=== PATIENT | female | born 1930 | race Caucasian/White ===

== ENCOUNTER 2021-02-14 10:27 | Inpatient (IN) ==
[2021-02-14] MEDS ORDERED: 0.9 % SODIUM CHLORIDE 1,000 ML IV ONE (11:05)
--- NOTE | 2021-02-14 11:11 | Emergency Department Note ---
HPI General Chief complaint: Fall Stated complaint: fall Time Seen by Provider: 02/14/21 10:49 Source: EMS Mode of arrival: EMS Limitations: physical limitation History of Present Illness HPI Narrative: Patient is an 89-year-old lady who arrives emergency department accompanied by her daughter complaining of a fall. History is provided by the patient and her daughter and is somewhat limited due to the patient's difficulty remembering events leading up to her emergency department presentation. The patient's da bao says she noticed a bruise on her mother's head yesterday. When she asked her mother about what it occurred she could not remember. This morning, the patient's daughter arrived to her home to find her sitting on the ground somewhat confused. She notes that the house was in some disarray and it appeared as if she may have fallen in the bathroom. The patient was complaining of pain in her left hip and her daughter noticed difficulty using her left arm. Patient cannot remember what happened. Her daughter was concerned that she was unable to stand under her own power as she is normally a quite active individual so she brought her to the emergency department for further evaluation. The patient currently has no physical complaints. Related Data Home Medications Medication Instructions Recorded Confirmed calcium carbonate 500 mg calcium 1,250 mg PO QDAY tab 10/15/14 02/14/21 (1,250 mg) tablet (Calcium 500) cholecalciferol (vitamin D3) 10 400 unit PO QDAY cap 10/15/14 02/14/21 mcg (400 unit) capsule vit C-vit V-nozpup-vmwy ox-lutein 2 cap PO .daily cap 04/25/17 02/14/21 226 mg-200 unit-5 mg-0.8 mg capsule (PreserVision Lutein) Previous Rx's Medication Instructions Recorded valsartan 160 mg tablet 80 mg PO BID #90 tab 12/02/19 calcitonin (salmon) 200 See Rx Instructions INTRANASAL 02/11/20 unit/actuation nasal spray QDAY #3.7 ml furosemide 40 mg tablet See Rx Instructions .ROUTE 12/10/20 .COMPLEX #90 tab amitriptyline 10 mg tablet See Rx Instructions .ROUTE 02/04/21 .COMPLEX #270 tab Allergies Allergy/AdvReac Type Severity Reaction Status Date / Time enalaprilat [From Lexxel] Allergy Mild Rash Verified 02/14/21 14:47 felodipine [From Lexxel] Allergy Mild Rash Verified 02/14/21 14:47 hydrocodone Allergy Mild Rash Verified 02/14/21 14:48 atenolol Allergy Unknown Unknown Verified 02/14/21 10:48 risedronate sodium AdvReac Intermediate Joint Pain Verified 02/14/21 14:47 [From Actonel] cefdinir [From Omnicef] AdvReac Mild Diarrhea Verified 02/14/21 14:47 indapamide [From Lozol] AdvReac Mild Intolerance/Dry Verified 02/14/21 14:47 Eyes - Probable Sjogren's meloxicam [From Mobic] AdvReac Mild GI Verified 02/14/21 14:47 intolerance nitrofurantoin AdvReac Mild itchy, no Verified 02/14/21 14:47 [From Macrobid] rash or hives noticed NSAIDS (Non-Steroidal AdvReac Mild Gastrointestinal Verified 02/14/21 14:47 Anti-Inflamma Upset sulfamethoxazole AdvReac Mild mouth Verified 02/14/21 14:48 [From Septra] burning telmisartan [From Micardis] AdvReac Mild Headache Verified 02/14/21 14:47 trimethoprim [From Septra] AdvReac Mild mouth Verified 02/14/21 14:48 burning Review of Systems ROS ROS Narrative: Narrative: All systems ED: reviewed and negative except as stated. 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) Foot pain, right (Chronic) Right shoulder pain (Chronic) Rotator cuff injury (Chronic) Rib pain on left side (Chronic) Rib fractures (Chronic) Irregular heart rhythm (Chronic) Cough (Chronic) Finger pain, right (Chronic) History of Mohs surgery for squamous cell carcinoma of skin (Chronic ~01/15/20) Visit for suture removal (Chronic) Basal cell carcinoma (Chronic) Atypical mole (Chronic) Medicare annual wellness visit, subsequent (Chronic) Urinary tract infection (Chronic) Bladder infection (Chronic) UTI (urinary tract infection) (Chronic) Distal radius fracture, right (Chronic) Fracture of ulnar styloid (Chronic) Vascular insufficiency of extremity (Chronic) Sinusitis (Chronic) Encounter for Health Maintenance Examination in Adult (Chronic) Status post wrist surgery (Chronic) History of shoulder surgery (Chronic) History of knee surgery (Chronic) History of hysterectomy (Chronic) History of colonoscopy (Chronic) Asymptomatic varicose veins of bilateral lower extremities (Chronic) Hx of urinary tract infection (Chronic) Shoulder fracture (Chronic) Raynaud's syndrome (Chronic) Radiculopathy, lumbosacral or thoracic (Chronic) Closed fracture of radius (Chronic) Premature atrial contractions (Chronic) Osteoporosis (Chronic) Menopausal syndrome (Chronic) Low back pain (Chronic) Irritable bowel syndrome (Chronic) Hypertension, essential (Chronic) Hyperlipemia (Chronic) Hematuria, microscopic (Chronic) Headache (Chronic) Gilbert's syndrome (Chronic) Fall (Chronic) Edema (Chronic) Dyspepsia (Chronic) Diverticulosis of colon (Chronic) Disc herniation (Chronic) Depressive disorder (Chronic) Degenerative joint disease (Chronic) Cystocele (Chronic) Constipation (Chronic) History of colonic polyps (Chronic) Cervical carcinoma (Chronic) Arthralgia (Chronic) Medical History Arthralgia (06/03/2014-Yourzek) Asymptomatic varicose veins of bilateral lower extremities Atypical mole Basal cell carcinoma Bladder infection Cervical carcinoma Cervical CA, S/P Hysterectomy. 12/2011--questionable pelvic exam with right adnexal fullness, negative workup with Ultrasound CT 11/2010--Pap OK 12/2011. Closed fracture of radius (06/03/14-Yourzek) Constipation Cough Cystitis Cystocele small cystocele; abdominal CT Nov Degenerative joint disease With last interaction the left knee arthroplasty in August of 2011 Depressive disorder Situational Disc herniation in 1998 and 2003 Distal radius fracture, right Diverticulosis of colon Colonoscopy in May 2007 showing diverticula and adenomatous polyp, due for rescreening through Dr Gatica in spring Dyspepsia Dysuria Edema Encounter for Health Maintenance Examination in Adult Fall non syncopal with left shoulder fracture in 1998 Finger pain, right Foot pain, right Fracture of ulnar styloid Gilbert's syndrome History of Headache Past history of headache with extensive workup in the late . Hematuria, microscopic History of colonic polyps 11/17/98--no change of collaagenous or microscopic colitis; lamina propria edema, mild infiltrate of eosinophils. 05/24/07--cecal polyp. splenic flexure polyp, diverticuli, hemorrhoids - Dr. Gatica. 02/07/13 Colonoscopy--Dr. Gatica--uncomplicated internal hemorrhoids; diverticulosis. No rescreen indicated beyond 82 yrs. of age unless new clinical issue arises. Hx of urinary tract infection History of recurrent UTI's, currently quiescient; small cystocele; abdominal CT Nov Hyperlipemia low dose Zocor-stable Hypertension, essential PAC's on electrocardiogram Irregular heart rhythm Irritable bowel syndrome History of Low back pain Medicare annual wellness visit, subsequent Menopausal syndrome Osteoporosis Resolved to osteopenia by bone density in December of 2011, continues Fortical. Stable vitamin D level October 2009 Premature atrial contractions Pruritus Pruritus of unknown etiology. No rash, or hives present. Pt completed 10 days of Macrobid on 11/29/2016. During her ABO treatment there were NO c/o of pruritus, rash, or hives. Radiculopathy, lumbosacral or thoracic History of left lumbar radiculopathy and herniated disc in 1998 and 2003 Raynaud's syndrome non progressive Rib fractures Rib pain on left side Right shoulder pain Right wrist fracture Rotator cuff injury Shoulder fracture 1998 Left Sinusitis Urinary tract infection UTI (urinary tract infection) Varicose veins of both lower extremities Vascular insufficiency of extremity Raynaud phenomenon on both feet Visit for suture removal Surgical History History of colonoscopy 11/17/98 no change of collagenous or microscopic colitis. 05/24/07--adenomatous polyps x2, diverticulosis, hemorrhoids - Dr. Gatica. 02/07/13 Colonoscopy--Dr. Gatica--uncomplicated internal hemorrhoids; diverticulosis. No rescreen indicated beyond 82 yrs. of age unless new clinical issue arises. History of hysterectomy 1967 cervical cancer. Vaginal pap smear done 01/03/12; questionable pelvic exam with right adnexal fullness, negative workup with ultrasound CT 12/04. Breast exam stable, mammogram DONE 01/09/12 on a background of positive family history and heavy breasted with cystic change History of knee surgery Right total knee replacement (no date); Left total Knee replacement 09/08/11--Dr. Gamino. History of Mohs surgery for squamous cell carcinoma of skin (~01/15/20) Left Wrist - Dr. Jace Rosen, [facility] History of shoulder surgery 2001 RIGHT SHOULDER Status post wrist surgery Bilateral wrist surgery Family History Sister Family history of malignant neoplasm of breast Unknown Essential hypertension Osteoarthritis Social History Smoking Status: Never smoker Alcohol Intake Frequency: does not drink Substance Use: does not use Exam Narrative Narrative: I reviewed the vital signs. Gen -patient is awake and alert and in no acute distress. HEENT -there is a patch of ecchymosis over the left frontal region without palpable underlying bony deformity there is no conjunctival pallor or scleral icterus. Mucous membranes are dry. CV -S1-S2 regular rate and rhythm. Resp -breathing is nonlabored. Lungs are clear to auscultation bilaterally. There is no cyanosis. Derm -skin is warm and dry. MSK -there are superficial abrasions over the right medial malleolus and left lateral malleolus without significant underlying bony tenderness. There is mild tenderness with internal and external rotation of the left hip. There is no palpable underlying bony deformity. The pelvis is stable. There is moderate tenderness to palpation of the distal left radius without any palpable underlying bony deformity. There is ecchymosis and edema of the left shoulder without any tenderness to palpation. Patient is slightly limited range of motion with her left shoulder due to pain. There is no midline vertebral tenderness to palpation. Psych -patient has appropriate affect. Neuro -patient provides somewhat confused answers to questions. She is oriented to person place and situation. She is oriented to the year but thinks the month is September. There is no dysarthria or aphasia. Facial sensation is symmetric. There is no facial muscular asymmetry. Extraocular motion is intact. Tongue protrudes in the midline. Palate elevates symmetrically. Shoulder shrug is symmetric. Muscle strength is 5 out of 5 in all 4 extremities. Peripheral sensation is grossly intact to light touch bilaterally. There is no zsir-rh-qrjz abnormality. There is no ailaxl-uj-vope abnormality. General Limitations: physical limitation Course Vital Signs Vital signs: Vital Signs Pulse Rate 61 02/14/21 10:41 Blood Pressure 143/84 02/14/21 10:41 Pulse Oximetry (%) 97 02/14/21 10:41 Temperature 99.1 F H 02/14/21 10:43 Pulse Rate 129 H 02/14/21 14:31 Respiratory Rate 27 H 02/14/21 14:31 Blood Pressure 117/95 02/14/21 14:31 Pulse Oximetry (%) 97 02/14/21 14:31 MDM MDM Narrative Medical decision making narrative: Patient presents following a fall with generalized weakness. Imaging does not reveal any intracranial hemorrhage or fractures. Labs remarkable for multiple mild electrolyte derangements consistent with dehydration as well as a creatinine that is slightly elevated above her baseline. She does have sign ificant leukocytosis and significant pyuria as well. Her CK is quite elevated. I discussed the test thoughts with the patient and her daughter. I recommended she be admitted to the hospital for IV antibiotics and IV fluids and she was agreeable. I discussed the patient's history examination and diagnostic findings with Dr. Carrizales, who agrees with the plan of care and accepts admission. Critical care time I provided 32 minutes of critical care time. This was in addition to any separately billable procedures. The patient was given IV fluids to treat her rhabdomyolysis and prevent progression to kidney injury. She was given IV antibiotics to treat her UTI and prevent progression to septic shock. the patient was closely monitored for response to treatment and stability of vital signs throughout their emergency department stay. Lab Data Lab results reviewed: Yes I reviewed the patient's lab results. Result diagrams: 02/14/21 11:29 02/14/21 11:29 Labs: Lab Results 02/14/21 02/14/21 02/14/21 Range/Units 11:28 11:29 11:29 WBC 14.6 H (4.5-11.0) K/mcL RBC 4.59 (3.59-5.38) M/mcL Hgb 13.0 (11.2-15.7) g/dL Hct 38.9 (34.1-44.9) % MCV 84.7 (80.0-100.0) fL MCH 28.3 (26.0-34.0) pg MCHC 33.4 (31.0-36.0) g/dL RDW 14.3 (11.5-14.5) % Plt Count 201 (140-440) K/mcL MPV 11.8 H (7.4-10.4) fL Neut % (Auto) 83.8 H (38.0-78.0) % Lymph % (Auto) 3.8 L (15.5-49.0) % [place] % (Auto) 12.2 H (1.0-12.0) % Eos % (Auto) 0 (0.0-7.0) % Baso % (Auto) 0.2 (0.0-2.0) % Lymph # (Auto) 0.56 L (1.50-4.80) K/mcL [place] # (Auto) 1.78 H (0.10-0.90) K/mcL Eos # (Auto) 0 (0.00-0.70) K/mcL Baso # (Auto) 0.03 (0.00-0.30) K/mcL Absolute Neutrophils 12.20 H (1.80-8.00) K/mcL VBG Lactic Acid 1.8 (0.5-2.0) mmol/L Sodium 132 L (133-145) mmol/L Potassium 4.0 (3.3-5.1) mmol/L Chloride 92 L (96-108) mmol/L Carbon Dioxide 21 L (22-30) mmol/L Anion Gap 19.0 H (8.0-16.0) BUN 52 H (8-23) mg/dL Creatinine 1.7 H (0.6-1.1) mg/dL GFR Calculation 26 Glucose 147 H (70-105) mg/dL Calcium 9.3 (8.6-10.4) mg/dL Total Bilirubin 1.3 H (0.1-1.0) mg/dL AST 127 H (<32) U/L ALT 41 H (<40) U/L Alkaline Phosphatase 94 (39-117) U/L Total Creatine Kinase 5050 H (24-170) U/L Total Protein 7.9 (5.9-8.4) gm/dL Albumin 3.9 (3.2-5.2) gm/dL Globulin 4.0 H (2.2-3.7) gm/dL Albumin/Globulin Ratio 1.0 (1.0-2.3) Urine Color Urine Appearance (Clear) Urine pH (5.0-9.0) Ur Specific [place] (1.000-1.035) Urine Protein (Negative) mg/dL Urine Glucose (UA) (Negative) mg/dL Urine Ketones (Negative) mg/dL Urine Occult Blood (Negative) mg/dL Urine Nitrate (Negative) Urine Bilirubin (Negative) mg/dL Urine Urobilinogen mg/dL Ur Leukocyte Esterase (Negative) /uL Urine RBC (0-3) /hpf Urine WBC (0-4) /hpf Ur Squamous Epith Cells (0-4) /hpf Urine Bacteria (0) /hpf Hyaline Casts (0-2) /lph Ur Culture Indicated? 02/14/21 Range/Units 12:36 WBC (4.5-11.0) K/mcL RBC (3.59-5.38) M/mcL Hgb (11.2-15.7) g/dL Hct (34.1-44.9) % MCV (80.0-100.0) fL MCH (26.0-34.0) pg MCHC (31.0-36.0) g/dL RDW (11.5-14.5) % Plt Count (140-440) K/mcL MPV (7.4-10.4) fL Neut % (Auto) (38.0-78.0) % Lymph % (Auto) (15.5-49.0) % [place] % (Auto) (1.0-12.0) % Eos % (Auto) (0.0-7.0) % Baso % (Auto) (0.0-2.0) % Lymph # (Auto) (1.50-4.80) K/mcL [place] # (Auto) (0.10-0.90) K/mcL Eos # (Auto) (0.00-0.70) K/mcL Baso # (Auto) (0.00-0.30) K/mcL Absolute Neutrophils (1.80-8.00) K/mcL VBG Lactic Acid (0.5-2.0) mmol/L Sodium (133-145) mmol/L Potassium (3.3-5.1) mmol/L Chloride (96-108) mmol/L Carbon Dioxide (22-30) mmol/L Anion Gap (8.0-16.0) BUN (8-23) mg/dL Creatinine (0.6-1.1) mg/dL GFR Calculation Glucose (70-105) mg/dL Calcium (8.6-10.4) mg/dL Total Bilirubin (0.1-1.0) mg/dL AST (<32) U/L ALT (<40) U/L Alkaline Phosphatase (39-117) U/L Total Creatine Kinase (24-170) U/L Total Protein (5.9-8.4) gm/dL Albumin (3.2-5.2) gm/dL Globulin (2.2-3.7) gm/dL Albumin/Globulin Ratio (1.0-2.3) Urine Color [place] Urine Appearance Turbid A (Clear) Urine pH 5.0 (5.0-9.0) Ur Specific [place] 1.013 (1.000-1.035) Urine Protein 100 A (Negative) mg/dL Urine Glucose (UA) Negative (Negative) mg/dL Urine Ketones Negative (Negative) mg/dL Urine Occult Blood 0.20 (Negative) mg/dL Urine Nitrate Negative (Negative) Urine Bilirubin Negative (Negative) mg/dL Urine Urobilinogen Negative mg/dL Ur Leukocyte Esterase 250 A (Negative) /uL Urine RBC 40 H (0-3) /hpf Urine WBC > 182 H (0-4) /hpf Ur Squamous Epith Cells 1 (0-4) /hpf Urine Bacteria Many A (0) /hpf Hyaline Casts 25 H (0-2) /lph Ur Culture Indicated? yes ED POC Tests ED POC Tests: JANEL - SARS Antigen Negative EKG Data EKG #1: EKG attestation: Yes I reviewed and interpreted this EKG. EKG results narrative: EKG performed at 11:29 AM: Sinus rhythm, rate 111. Normal P wave QRS and T wave morphology. There are multiple PVCs. Normal SC QRS and QTc duration. There is no evidence of Brugada, Mcgxy-Tbqejigkq-Ziwla, HOCM or arrhythmogenic right ventricular dysplasia. No old EKG immediately available for comparison. EKG was interpreted by me. Discharge Plan Patient/Caregiver Discharge Instructions Pt seen by FORESTRY FOREMAN/PA only: No Clinical Impression: Acute UTI, Rhabdomyolysis Patient Disposition: Xfer As Inpt ([facility]) Follow up with: Robert Morales MD [Primary Care Provider] - Prescriptions: No Action valsartan 160 mg tablet 80 mg PO BID Qty: 90 4RF calcitonin (salmon) 200 unit/actuation spray,non-aerosol See Rx Instructions INTRANASAL QDAY Qty: 3.7 5RF Dose Instruction: 1 spray INTRANASAL QDAY Rx Instructions: 1 spray INTRANASAL QDAY furosemide 40 mg tablet See Rx Instructions .ROUTE .COMPLEX Qty: 90 4RF Dose Instruction: TAKE ONE TABLET BY MOUTH EVERY DAY Rx Instructions: TAKE ONE TABLET BY MOUTH EVERY DAY amitriptyline 10 mg tablet See Rx Instructions .ROUTE .COMPLEX Qty: 270 0RF Dose Instruction: TAKE THREE TABLETS BY MOUTH AT BEDTIME Rx Instructions: TAKE THREE TABLETS BY MOUTH AT BEDTIME calcium carbonate [Calcium 500] 500 mg calcium (1,250 mg) tablet 1,250 mg PO QDAY 0RF Rx Instructions: 1 tablet PO QDAY cholecalciferol (vitamin D3) 400 unit capsule 400 unit PO QDAY 0RF vit C-vit I-tybzzu-xtje-lutein [PreserVision Lutein] 226 mg-200 unit -5 mg-0.8 mg capsule 2 cap PO .daily 0RF
[2021-02-14 12:10] LABS: Basophils # (Auto) 0.03 K/mcL (0.00-0.30); Basophils % (Auto) 0.2 % (0.0-2.0); Eosinophils # (Auto) 0 K/mcL (0.00-0.70); Eosinophils % (Auto) 0 % (0.0-7.0); Hematocrit 38.9 % (34.1-44.9); Lymphocytes # (Auto) 0.56 K/mcL (1.50-4.80); Lymphocytes % (Auto) 3.8 % (15.5-49.0); Mean Cell Volume 84.7 fL (80.0-100.0); Mean Corpuscular HGB Conc 33.4 g/dL (31.0-36.0); Mean Platelet Volume 11.8 fL (7.4-10.4); Monocytes # (Auto) 1.78 K/mcL (0.10-0.90); Monocytes % (Auto) 12.2 % (1.0-12.0); Neutrophils % (Auto) 83.8 % (38.0-78.0); Platelet Count 201 K/mcL (140-440); RBC 4.59 M/mcL (3.59-5.38); Red Cell Distribution Width 14.3 % (11.5-14.5); WBC 14.6 K/mcL (4.5-11.0)
[2021-02-14 12:33] LABS: ALT/SGPT 41 U/L (<40); AST/SGOT 127 U/L (<32); Albumin 3.9 gm/dL (3.2-5.2); Alkaline Phosphatase 94 U/L (39-117); Bilirubin,Total 1.3 mg/dL (0.1-1.0); Blood Urea Nitrogen 52 mg/dL (8-23); Calcium 9.3 mg/dL (8.6-10.4); Carbon Dioxide 21 mmol/L (22-30); Chloride 92 mmol/L (96-108); Glomerular Filtration Rate 26; Glucose 147 mg/dL (70-105)
--- NOTE | 2021-02-14 12:57 | Cat Scan Report ---
CLINICAL INFORMATION: Trauma-fall COMPARISON: None. TECHNIQUE: 2.5 mm helical slices were obtained in the skull base to vertex. Following reconstruction, axial reformatted images were reviewed at bone and parenchymal windows. The exam was performed using radiation dose optimization techniques including, but not limited to, automated exposure control, adjustment of the mA and/or kV according to patient size and use of iterative reconstruction technique. FINDINGS: The ventricles, sulci, fissures, and cisterns are symmetrically enlarged compatible with mild age-related atrophy. No extra-axial fluid collections are identified. Mild patchy chronic ischemic changes, in the deep cerebral white matter, are expected for age. There is no hemorrhage, mass effect, or edema. Bone windows show no osseous abnormality. IMPRESSION: Mild atrophy and chronic ischemic changes in the deep cerebral white matter-expected for age. No acute findings Interpreted and Authenticated by: Chris Kaplan 02/14/21
[2021-02-14 12:58] LABS: Creatine Kinase 5050 U/L (24-170)
--- NOTE | 2021-02-14 13:08 | Cat Scan Report ---
CLINICAL INFORMATION: Trauma-fall COMPARISON: None. TECHNIQUE: 0.625 mm helical slices were obtained from the skull base through the superior T2 end plate. Following reconstruction, 2.5 mm sagittal, coronal and axial reformations , with and without disc space angling, were processed. The exam was reviewed at bone and soft tissue windows. The exam was performed using radiation dose optimization techniques including, but not limited to, automated exposure control, adjustment of the mA and/or kV according to patient size and use of iterative reconstruction technique. FINDINGS: Sagittal and coronal reformatted images show 3 mm of C4 anterior subluxation. Cervical spine is, otherwise, anatomically aligned. 11 mm radiolucent lesion is seen in the central dens and a 9 mm lesion in the left anterior C1 ring are likely cysts.. There is also a 17 mm lytic lesion in the occipital calvarium at midline involving the internal occipital protuberance. It is likely a benign pacchonian granulation. The cervical cord is normal in contour and caliber without focal lesion. The soft tissues are normal. The C2-3 and C3-4 disc levels are normal. C4-5, minimal central canal narrowing due to spondylolisthesis appreciated disc is normal. C5-6 mild broad disc spur complex results in moderate central canal and mild left IV foraminal narrowing C6-7 mild broad disc protrusion complex results in minimal thecal sac. C7-T1 this level is normal IMPRESSION: 1. No fracture or other acute posttraumatic change. 2. Mild multilevel degeneration 3. Radiolucent lesions in the left anterior C1 ring, dens body and occipital calvaria are all likely benign. Consider follow-up plain films of spine in 8-12 weeks to ensure stability of these regions Interpreted and Authenticated by: Chris Kaplan 02/14/21
--- NOTE | 2021-02-14 13:08 | XRay Report ---
CLINICAL INFORMATION: Trauma now with left hip pain COMPARISON: None. FINDINGS: Sacroiliac and hip joints are normal in width and alignment without arthritic change. There is no fracture or osseous abnormality. Soft tissues are unremarkable. IMPRESSION: Normal exam. Interpreted and Authenticated by: Chris Kaplan 02/14/21
--- NOTE | 2021-02-14 13:19 | XRay Report ---
CLINICAL INFORMATION: Trauma-fall COMPARISON: 06/03/2014 FINDINGS: Volar plate and screws transfix an old solid unified Colles' fracture which is anatomically aligned. 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 Severe distal radioulnar and first CMC degeneration noted. Mild diffuse soft tissue swelling appreciated. IMPRESSION: No acute fracture identified. 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
--- NOTE | 2021-02-14 13:21 | XRay Report ---
CLINICAL INFORMATION: Trauma-fall COMPARISON: None. FINDINGS: The acromioclavicular and glenohumeral joint spaces moderate degeneration. There is a 3.3 x 1 cm ossification in the subacromial region which may represent a loose body. Soft tissues otherwise normal. IMPRESSION: No fracture identified. Acromioclavicular and glenohumeral degeneration Very large 3.3 x 1 cm ossification in the subacromial region-likely a loose body. It was also seen on 09/13/2018 chest x-ray. If there is significant pain with abduction, consider orthopedic referral for excision Interpreted and Authenticated by: Chris Kaplan 02/14/21
--- NOTE | 2021-02-14 13:24 | XRay Report ---
CLINICAL INFORMATION: Trauma COMPARISON: 09/13/2018 TECHNIQUE: PA and Lateral views FINDINGS: The heart is borderline enlarged-slightly increased. Mediastinum is unremarkable. Slight cephalization of pulmonary vasculature appreciated with minimal interstitial edema. Lungs otherwise clear. No effusions or evidence of pneumothorax.. IMPRESSION: Borderline CHF or volume overload. Correlate with other clinical history. No acute posttraumatic change Interpreted and Authenticated by: Chris Kaplan 02/14/21
[2021-02-14] MEDS ORDERED: LACTATED RINGERS 1,000 ML IV ONE (13:34)
[2021-02-14 14:23] LABS: Appearance,Urine TURBID (Clear); Bacteria,Urine MANY /hpf (0); Bilirubin,Urine Negative (Negative); Color,Urine AMBER; Culture Indicated,Urine yes; Glucose,Urine (UA) Negative (Negative); Ketones,Urine Negative (Negative); Leukocyte Esterase,Urine 250 /uL (Negative); Nitrate,Urine Negative (Negative); Protein,Urine 100 mg/dL (Negative); Specific Gravity,Urine 1.013 (1.000-1.035); Urine Hyaline Cast 25 /lph (0-2); Urine RBC 40 /hpf (0-3); Urine Squamous Epithelial Cell 1 /hpf (0-4); Urine WBC > 182 /hpf (0-4); Urobilinogen,Urine Negative
[2021-02-14] MEDS ORDERED: cefTRIAXone 1 GM VIAL IV ONE (14:25)
--- NOTE | 2021-02-14 14:32 | EKG ---
[facility] Test Date: 2021-02-14 Pat Name: Shalini Gentile Department: ED Room: Gender: Female Esthetician/Spa Coordinator: sb : 1930 Requested By: George Alarcon Order Number: [id number] Reading MD: Chris Evans M.D. Measurements Intervals [place] Rate: 111 P: 18 NM: 155 QRS: -24 QRSD: 86 T: 22 QT: 351 QTc: 477 Interpretive Statements Multifocal atrial tachycardia Multiform ventricular premature complexes Borderline left axis deviation Borderline T wave abnormalities Electronically Signed On 02-14-2021 14:32:17 PST by Chris Evans M.D. /[id number]/[id number]
[2021-02-14] MEDS ORDERED: POTASSIUM CHLORIDE 40 MEQ in DEXTROSE 5% IN WATER 500 ML IV PRN (14:34)
[2021-02-14] MEDS ORDERED: POTASSIUM CHLORIDE 20 MEQ PACKET PO PRN (14:34)
[2021-02-14] MEDS ORDERED: METOPROLOL TARTRATE 5 MG/5 ML VIAL IV PRN (14:34)
[2021-02-14] MEDS ORDERED: MAGNESIUM SULFATE 2 GM/50 ML BAG IV PRN (14:34)
[2021-02-14] MEDS ORDERED: POLYETHYLENE GLYCOL 3350 17 GM PACKET PO PRN (14:34)
[2021-02-14] MEDS ORDERED: ACETAMINOPHEN 650 MG/65 ML BAG IV PRN (14:34)
[2021-02-14] MEDS ORDERED: ONDANSETRON 4 MG/2 ML VIAL IV PRN (14:34)
[2021-02-14] MEDS ORDERED: BISACODYL 10 MG SUPP.RECT PR PRN (14:34)
[2021-02-14] MEDS ORDERED: hydrALAZINE 20 MG/ML VIAL IV PRN (14:34)
[2021-02-14] MEDS ORDERED: MELATONIN 3 MG TABLET PO PRN (14:34)
[2021-02-14] MEDS ORDERED: ONDANSETRON 4 MG ODT TABLET SL PRN (14:34)
--- NOTE | 2021-02-14 14:41 | Internal Med History&Physical ---
HPI History of Present Illness Patient information: Note initiated : 02/14/21 at 2:41 pm Service Date, if different from initiated Date: [] Patient: Shalini Gentile a 89 y/o F admitted on for fall. Chief Complaint: [] History of present illness: Ms. Gentile is a 89 year old F with a history of hypertension who lives fairly independently with her daughter who lives within 5 minutes of her home and frequently checks on her. She found her yesterday confused weak and with the bruising on forehead. She however was not able to tell her exact circumstances of injury or fall. Although she was lucid and daughter did not feel that she would require hospitalization. She checked on her this morning. Patient was increasingly confused and weaker unable to function or get out of bed. She has not been able to eat anything since last night. With concern she brought her to the ER for evaluation. Initial work-up was consistent with sepsis with pyuria and acute kidney injury, elevated CK at 5000. Patient was started on crystalloid/antibiotics and subsequently hospitalist service was consulted At the time of my evaluation patient is accompanied with her daughter. She was able to answer most the questions. She feels a lot better after 2 L of crystalloids. She denies recent diarrhea, dysuria, chest pain, URI symptoms, medication changes. She denies recent hospitalizations. She is otherwise fairly active and uses a walker to ambulate. 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) Foot pain, right (Chronic) Right shoulder pain (Chronic) Rotator cuff injury (Chronic) Rib pain on left side (Chronic) Rib fractures (Chronic) Irregular heart rhythm (Chronic) Cough (Chronic) Finger pain, right (Chronic) History of Mohs surgery for squamous cell carcinoma of skin (Chronic ~01/15/20) Visit for suture removal (Chronic) Basal cell carcinoma (Chronic) Atypical mole (Chronic) Medicare annual wellness visit, subsequent (Chronic) Urinary tract infection (Chronic) Bladder infection (Chronic) UTI (urinary tract infection) (Chronic) Distal radius fracture, right (Chronic) Fracture of ulnar styloid (Chronic) Vascular insufficiency of extremity (Chronic) Sinusitis (Chronic) Encounter for Health Maintenance Examination in Adult (Chronic) Status post wrist surgery (Chronic) History of shoulder surgery (Chronic) History of knee surgery (Chronic) History of hysterectomy (Chronic) History of colonoscopy (Chronic) Asymptomatic varicose veins of bilateral lower extremities (Chronic) Hx of urinary tract infection (Chronic) Shoulder fracture (Chronic) Raynaud's syndrome (Chronic) Radiculopathy, lumbosacral or thoracic (Chronic) Closed fracture of radius (Chronic) Premature atrial contractions (Chronic) Osteoporosis (Chronic) Menopausal syndrome (Chronic) Low back pain (Chronic) Irritable bowel syndrome (Chronic) Hypertension, essential (Chronic) Hyperlipemia (Chronic) Hematuria, microscopic (Chronic) Headache (Chronic) Gilbert's syndrome (Chronic) Fall (Chronic) Edema (Chronic) Dyspepsia (Chronic) Diverticulosis of colon (Chronic) Disc herniation (Chronic) Depressive disorder (Chronic) Degenerative joint disease (Chronic) Cystocele (Chronic) Constipation (Chronic) History of colonic polyps (Chronic) Cervical carcinoma (Chronic) Arthralgia (Chronic) Medical History Arthralgia (06/03/2014-Your[facility]) Asymptomatic varicose veins of bilateral lower extremities Atypical mole Basal cell carcinoma Bladder infection Cervical carcinoma Cervical CA, S/P Hysterectomy. 12/2011--questionable pelvic exam with right adnexal fullness, negative workup with Ultrasound CT 11/2010--Pap OK 12/2011. Closed fracture of radius (06/03/14-Yourzek) Constipation Cough Cystitis Cystocele small cystocele; abdominal CT Nov Degenerative joint disease With last interaction the left knee arthroplasty in August of 2011 Depressive disorder Situational Disc herniation in 1998 and 2003 Distal radius fracture, right Diverticulosis of colon Colonoscopy in May 2007 showing diverticula and adenomatous polyp, due for rescreening through Dr Gatica in spring Dyspepsia Dysuria Edema Encounter for Health Maintenance Examination in Adult Fall non syncopal with left shoulder fracture in 1998 Finger pain, right Foot pain, right Fracture of ulnar styloid Gilbert's syndrome History of Headache Past history of headache with extensive workup in the late . Hematuria, microscopic History of colonic polyps 11/17/98--no change of collaagenous or microscopic colitis; lamina propria edema, mild infiltrate of eosinophils. 05/24/07--cecal polyp. splenic flexure polyp, diverticuli, hemorrhoids - Dr. Gatica. 02/07/13 Colonoscopy--Dr. Gatica--uncomplicated internal hemorrhoids; diverticulosis. No rescreen indicated beyond 81 yrs. of age unless new clinical issue arises. Hx of urinary tract infection History of recurrent UTI's, currently quiescient; small cystocele; abdominal CT Nov Hyperlipemia low dose Zocor-stable Hypertension, essential PAC's on electrocardiogram Irregular heart rhythm Irritable bowel syndrome History of Low back pain Medicare annual wellness visit, subsequent Menopausal syndrome Osteoporosis Resolved to osteopenia by bone density in December of 2011, continues Fortical. Stable vitamin D level October 2009 Premature atrial contractions Pruritus Pruritus of unknown etiology. No rash, or hives present. Pt completed 10 days of Macrobid on 11/29/2016. During her ABO treatment there were NO c/o of pruritus, rash, or hives. Radiculopathy, lumbosacral or thoracic History of left lumbar radiculopathy and herniated disc in 1998 and 2003 Raynaud's syndrome non progressive Rib fractures Rib pain on left side Right shoulder pain Right wrist fracture Rotator cuff injury Shoulder fracture 1998 Left Sinusitis Urinary tract infection UTI (urinary tract infection) Varicose veins of both lower extremities Vascular insufficiency of extremity Raynaud phenomenon on both feet Visit for suture removal Surgical History History of colonoscopy 11/17/98 no change of collagenous or microscopic colitis. 05/24/07--adenomatous polyps x2, diverticulosis, hemorrhoids - Dr. Gatica. 02/07/13 Colonoscopy--Dr. Gatica--uncomplicated internal hemorrhoids; diverticulosis. No rescreen indicated beyond 81 yrs. of age unless new clinical issue arises. History of hysterectomy 1967 cervical cancer. Vaginal pap smear done 01/03/12; questionable pelvic exam with right adnexal fullness, negative workup with ultrasound CT 12/04. Breast exam stable, mammogram DONE 01/09/12 on a background of positive family history and heavy breasted with cystic change History of knee surgery Right total knee replacement (no date); Left total Knee replacement 09/08/11--Dr. Gamino. History of Mohs surgery for squamous cell carcinoma of skin (~01/15/20) Left Wrist - Dr. Jace Rosen, [facility] History of shoulder surgery 2002 RIGHT SHOULDER Status post wrist surgery Bilateral wrist surgery Family History Sister Family history of malignant neoplasm of breast Unknown Essential hypertension Osteoarthritis Social History household members: alone housing: house lives independently: Yes marital status: occupational status: retired other: 4 children who live in the [place] and assist alcohol intake frequency: does not drink substance use type: does not use MEDS/ALLERGIES Home Medications and Allergies Home Medications Medication Instructions Recorded Confirmed Type calcium carbonate 500 mg calcium 1,250 mg PO QDAY tab 10/15/14 02/14/21 History (1,250 mg) tablet (Calcium 500) cholecalciferol (vitamin D3) 10 400 unit PO QDAY cap 10/15/14 02/14/21 History mcg (400 unit) capsule vit C-vit F-vchale-cesr ox-lutein 2 cap PO .daily cap 04/25/17 02/14/21 History 226 mg-200 unit-5 mg-0.8 mg capsule (PreserVision Lutein) valsartan 160 mg tablet 80 mg PO BID #90 tab 12/02/19 02/14/21 Rx calcitonin (salmon) 200 See Rx Instructions INTRANASAL 02/11/20 02/14/21 Rx unit/actuation nasal spray QDAY #3.7 ml furosemide 40 mg tablet See Rx Instructions .ROUTE 12/10/20 02/14/21 Rx .COMPLEX #90 tab amitriptyline 10 mg tablet See Rx Instructions .ROUTE 02/04/21 02/14/21 Rx .COMPLEX #270 tab Allergies Allergy/AdvReac Type Severity Reaction Status Date / Time enalaprilat [From Lexxel] Allergy Mild Rash Verified 02/14/21 14:47 felodipine [From Lexxel] Allergy Mild Rash Verified 02/14/21 14:47 hydrocodone Allergy Mild Rash Verified 02/14/21 14:48 atenolol Allergy Unknown Unknown Verified 02/14/21 10:48 risedronate sodium AdvReac Intermediate Joint Pain Verified 02/14/21 14:47 [From Actonel] cefdinir [From Omnicef] AdvReac Mild Diarrhea Verified 02/14/21 14:47 indapamide [From Lozol] AdvReac Mild Intolerance/Dry Verified 02/14/21 14:47 Eyes - Probable Sjogren's meloxicam [From Mobic] AdvReac Mild GI Verified 02/14/21 14:47 intolerance nitrofurantoin AdvReac Mild itchy, no Verified 02/14/21 14:47 [From Macrobid] rash or hives noticed NSAIDS (Non-Steroidal AdvReac Mild Gastrointestinal Verified 02/14/21 14:47 Anti-Inflamma Upset sulfamethoxazole AdvReac Mild mouth Verified 02/14/21 14:48 [From Septra] burning telmisartan [From Micardis] AdvReac Mild Headache Verified 02/14/21 14:47 trimethoprim [From Septra] AdvReac Mild mouth Verified 02/14/21 14:48 burning EXAM Constitutional Vitals: Temp Pulse Resp BP Pulse Ox 99.1 F H 63 28 H 113/68 100 02/14/21 10:43 02/14/21 14:01 02/14/21 14:15 02/14/21 14:01 02/14/21 13:32 Alert oriented but anxious Head normocephalic Oral cavity dry No ear or nose discharge Eye no subconjunctival pallor, movement symmetrical S1-S2 occasionally irregular Nonlabored breathing Nondistended nontender abdomen Lower extremity no cyanosis clubbing or joint swelling Skin no suspicious lesion Psych anxious but no hallucination Neuro normal higher function on limited neuro exam DATA Data Completed and Pending Labs: Labs from last 24 hours 02/14/21 02/14/21 02/14/21 12:36 11:29 11:29 WBC 14.6 H RBC 4.59 Hgb 13.0 Hct 38.9 MCV 84.7 MCH 28.3 MCHC 33.4 RDW 14.3 Plt Count 201 MPV 11.8 H Neut % (Auto) 83.8 H Lymph % (Auto) 3.8 L Wolfe % (Auto) 12.2 H Eos % (Auto) 0 Baso % (Auto) 0.2 Lymph # (Auto) 0.56 L Wolfe # (Auto) 1.78 H Eos # (Auto) 0 Baso # (Auto) 0.03 Absolute Neutrophils 12.20 H VBG Lactic Acid Sodium 132 L Potassium 4.0 Chloride 92 L Carbon Dioxide 21 L Anion Gap 19.0 H BUN 52 H Creatinine 1.7 H GFR Calculation 26 Glucose 147 H Calcium 9.3 Total Bilirubin 1.3 H AST 127 H ALT 41 H Alkaline Phosphatase 94 Total Creatine Kinase 5050 H Total Protein 7.9 Albumin 3.9 Globulin 4.0 H Albumin/Globulin Ratio 1.0 Urine Color Karina Urine Appearance Turbid A Urine pH 5.0 Ur Specific [place] 1.013 Urine Protein 100 A Urine Glucose (UA) Negative Urine Ketones Negative Urine Occult Blood 0.20 Urine Nitrate Negative Urine Bilirubin Negative Urine Urobilinogen Negative Ur Leukocyte Esterase 250 A Urine RBC 40 H Urine WBC > 182 H Ur Squamous Epith Cells 1 Urine Bacteria Many A Hyaline Casts 25 H Ur Culture Indicated? yes 02/14/21 11:28 WBC RBC Hgb Hct MCV MCH MCHC RDW Plt Count MPV Neut % (Auto) Lymph % (Auto) Wolfe % (Auto) Eos % (Auto) Baso % (Auto) Lymph # (Auto) Wolfe # (Auto) Eos # (Auto) Baso # (Auto) Absolute Neutrophils VBG Lactic Acid 1.8 Sodium Potassium Chloride Carbon Dioxide Anion Gap BUN Creatinine GFR Calculation Glucose Calcium Total Bilirubin AST ALT Alkaline Phosphatase Total Creatine Kinase Total Protein Albumin Globulin Albumin/Globulin Ratio Urine Color Urine Appearance Urine pH Ur Specific [place] Urine Protein Urine Glucose (UA) Urine Ketones Urine Occult Blood Urine Nitrate Urine Bilirubin Urine Urobilinogen Ur Leukocyte Esterase Urine RBC Urine WBC Ur Squamous Epith Cells Urine Bacteria Hyaline Casts Ur Culture Indicated? A/P Narrative A/P Narrative: * Complicated UTI, initiate antibiotic coverage, de-escalate based on culture sensitivities * Sepsis with endorgan dysfunction secondary to above, continue management per guidelines. Antibiotics crystalloid, pancultures * CALVIN secondary to sepsis endorgan dysfunction. Continue crystalloids, monitor renal function, avoid nephrotoxins. Check renal ultrasound rule out obstructive uropathy * Rhabdomyolysis secondary to fall continue crystalloids. * Hypertension hold ARB until renal function improves * Prophylaxis Heparin Plan * Inpatient admission * Sepsis management per guidelines * Monitor renal function * Renal ultrasound * PT OT/nutrition support * Discharge planning per case management Time Spent With Patient Time: Total time spent is greater than 50% in coordination of care (as documented) at patient's floor/unit and/or counseling patient:
--- NOTE | 2021-02-14 16:31 | Ultrasound Report ---
CLINICAL INFORMATION: UTI COMPARISON: None. FINDINGS: Both kidneys are normal and symmetric in size, position, configuration and echotexture: The right is 10.5 x 4.7 cm left is 10.4 x 4.8 cm. No stones, cysts or solid masses. No hydronephrosis. Arterial blood flow is grossly normal in both kidneys on color Doppler. Urinary bladder volume is 411 cc patient was unable to void. No focal bladder lesions. IMPRESSION: Normal kidneys and bladder. Interpreted and Authenticated by: Chris Kaplan 02/14/21
[2021-02-14] MEDS: 0.9 % SODIUM CHLORIDE 1,000 ML IV SCH ×2 (17:57→18:02)
[2021-02-14] MEDS: DOCUSATE SODIUM 100 MG CAPSULE PO SCH (19:44)
[2021-02-14] MEDS: SENNOSIDES/DOCUSATE SODIUM 1 TAB TABLET PO SCH (19:44)
[2021-02-14] MEDS: HEPARIN 5,000 UNIT/ML VIAL SQ SCH (19:44)
[2021-02-14] MEDS: 0.9 % SODIUM CHLORIDE 10 ML SYRINGE IV SCH (20:01)
[2021-02-14] MEDS: ACETAMINOPHEN 325 MG TABLET PO PRN (22:47)
[2021-02-15] MEDS: 0.9 % SODIUM CHLORIDE 10 ML SYRINGE IV SCH ×3 (04:05→20:29)
[2021-02-15 08:35] LABS: Basophils # (Auto) 0.02 K/mcL (0.00-0.30); Basophils % (Auto) 0.2 % (0.0-2.0); Eosinophils # (Auto) 0.01 K/mcL (0.00-0.70); Eosinophils % (Auto) 0.1 % (0.0-7.0); Hematocrit 37.1 % (34.1-44.9); Lymphocytes # (Auto) 0.76 K/mcL (1.50-4.80); Mean Cell Volume 87.7 fL (80.0-100.0); Mean Corpuscular HGB Conc 32.3 g/dL (31.0-36.0); Monocytes # (Auto) 1.42 K/mcL (0.10-0.90); Monocytes % (Auto) 13.1 % (1.0-12.0); Neutrophils % (Auto) 79.6 % (38.0-78.0); Platelet Count 244 K/mcL (140-440); RBC 4.23 M/mcL (3.59-5.38); Red Cell Distribution Width 14.4 % (11.5-14.5); WBC 10.9 K/mcL (4.5-11.0)
[2021-02-15] MEDS: DOCUSATE SODIUM 100 MG CAPSULE PO SCH ×2 (08:51→20:18)
[2021-02-15] MEDS: MULTIVIT,THER IRON,CA,FA & MIN 1 TABLET PO SCH (08:51)
[2021-02-15] MEDS: HEPARIN 5,000 UNIT/ML VIAL SQ SCH ×2 (08:52→20:19)
[2021-02-15] MEDS: cefTRIAXone 2 GM in DEXTROSE 5% IN WATER 50 ML IV SCH (08:52)
[2021-02-15 09:04] LABS: ALT/SGPT 36 U/L (<40); AST/SGOT 82 U/L (<32); Albumin 3.5 gm/dL (3.2-5.2); Alkaline Phosphatase 86 U/L (39-117); Bilirubin,Direct 0.2 mg/dL (<0.3); Bilirubin,Total 0.9 mg/dL (0.1-1.0); Blood Urea Nitrogen 46 mg/dL (8-23); Calcium 8.8 mg/dL (8.6-10.4); Carbon Dioxide 23 mmol/L (22-30); Chloride 98 mmol/L (96-108); Globulin 3.5 gm/dL (2.2-3.7); Glomerular Filtration Rate 33; Glucose 109 mg/dL (70-105); Lactate Dehydrogenase 292 U/L (135-225); Phosphorous 3.7 mg/dL (2.5-4.5); Triglycerides 128 mg/dL (<150); Uric Acid 8.3 mg/dL (2.5-8.0)
[2021-02-15] MEDS: 0.9 % SODIUM CHLORIDE 1,000 ML IV SCH ×3 (11:15→14:35)
--- NOTE | 2021-02-15 11:33 | Internal Med Progress Note ---
SUBJECTIVE Subjective Patient information: Note initiated : 02/15/21 at 11:28 am Service Date, if different from initiated Date: [] Patient: Shalini Gentile 89 y/o F admitted on 02/14/21 for fall. Chief Complaint: [] Interval history: Ms. Gentile is a 89 year old F with a history of hypertension who lives fairly independently with her daughter who lives within 5 minutes of her home and frequently checks on her. She found her yesterday confused weak and with the bruising on forehead. She however was not able to tell her exact circumstances of injury or fall. Although she was lucid and daughter did not feel that she would require hospitalization. She checked on her this morning. Patient was increasingly confused and weaker unable to function or get out of bed. She has not been able to eat anything since last night. With concern she brought her to the ER for evaluation. Initial work-up was consistent with sepsis with pyuria and acute kidney injury, elevated CK at 5000. Patient was started on crystalloid/antibiotics and subsequently hospitalist service was consulted At the time of my evaluation patient is accompanied with her daughter. She was able to answer most the questions. She feels a lot better after 2 L of trent talloids. She denies recent diarrhea, dysuria, chest pain, URI symptoms, medication changes. She denies recent hospitalizations. She is otherwise fairly active and uses a walker to ambulate. 02/15-patient doing a lot better. Sitting on chair. Much improved mental status, hemodynamics and downtrending white count. Creatinine down from 1.7- 1.4. Renal ultrasound negative for obstructive uropathy. LFTs improving. Sepsis much improved with white count down from 14.6- 7K. Tachycardia resolved, afebrile, systolics improved. Lactate 1.8, GNR on urine cultures. Constitutional Vitals: Vital Signs Temp Pulse Resp BP Pulse Ox 97.3 F 70 22 128/63 98 02/15/21 08:00 02/15/21 08:00 02/15/21 08:00 02/15/21 08:00 02/15/21 08:00 Period Temp Pulse Resp BP Sys/Mcghee Pulse Ox Last 24 Hr 97.2 F-100.1 F 39-129 16-28 108-144/54-103 93-100 Intake and Output 02/14/21 02/15/21 02/15/21 21:59 05:59 13:59 Intake Total 1000 300 530 Output Total 402 502 401 Balance 598 -202 129 Weight 72.575 kg Alert oriented Nonlabored breathing No anxiety Nondistended abdomen Intake & Output: Intake & Output 02/14/21 02/15/21 02/15/21 21:59 05:59 13:59 Intake Total 1000 300 530 Output Total 402 502 401 Balance 598 -202 129 Weight 72.575 kg Intake: IV 1000 50 Lactated Ringers 1,000 ml @ 1000 Wide Open IV BOLUS ONE Rx#: [id number] Rocephin 2 gm In Dextrose 5% in 50 Water 50 ml @ 100 mls/hr IV Q24H CHARLES Rx#:[id number] Oral 300 480 Output: Void Amount 400 500 400 # of times incontinent of urine 2 2 1 Other: Meal Dinner Breakfast Percent of Meal Consumed 75% 50% Feeding Ability Assist with Tray Set Up Independent Urine Appearance Cloudy Cloudy Cloudy Urine Color Pale Dark Yellow Urine Odor Foul Normal OBJ DATA Labs CBC & Chem 7: 02/15/21 05:25 02/15/21 05:25 Labs: Abnormal Lab Results 02/15/21 02/15/21 02/14/21 05:25 05:25 12:36 WBC MPV 11.0 H Neut % (Auto) 79.6 H Lymph % (Auto) 7.0 L [place] % (Auto) 13.1 H Lymph # (Auto) 0.76 L [place] # (Auto) 1.42 H Absolute Neutrophils 8.65 H Sodium Chloride Carbon Dioxide Anion Gap BUN 46 H Creatinine 1.4 H Glucose 109 H Uric Acid 8.3 H Magnesium 3.0 H Total Bilirubin AST 82 H ALT Lactate Dehydrogenase 292 H Total Creatine Kinase Globulin Procalcitonin Urine Appearance Turbid A Urine Protein 100 A Ur Leukocyte Esterase 250 A Urine RBC 40 H Urine WBC > 182 H Urine Bacteria Many A Hyaline Casts 25 H 02/14/21 02/14/21 02/14/21 11:29 11:29 11:29 WBC 14.6 H MPV 11.8 H Neut % (Auto) 83.8 H Lymph % (Auto) 3.8 L [place] % (Auto) 12.2 H Lymph # (Auto) 0.56 L [place] # (Auto) 1.78 H Absolute Neutrophils 12.20 H Sodium 132 L Chloride 92 L Carbon Dioxide 21 L Anion Gap 19.0 H BUN 52 H Creatinine 1.7 H Glucose 147 H Uric Acid Magnesium Total Bilirubin 1.3 H AST 127 H ALT 41 H Lactate Dehydrogenase Total Creatine Kinase 5050 H Globulin 4.0 H Procalcitonin 1.27 H Urine Appearance Urine Protein Ur Leukocyte Esterase Urine RBC Urine WBC Urine Bacteria Hyaline Casts Meds: Medications Acetaminophen (Acetaminophen 325 Mg Tablet) 650 mg PO Q4-6HP PRN; Protocol PRN Reason: Per Pain Protocol/Fever > 101 Last Admin: 02/14/21 22:47 Dose: 650 mg Documented by: Bisacodyl (Bisacodyl 10 Mg Supp.Rect) 10 mg OR Q2-3DAYS PRN PRN Reason: Constipation Docusate Sodium (Docusate Sodium 100 Mg Capsule) 100 mg PO BID [facility] Last Admin: 02/15/21 08:51 Dose: 100 mg Documented by: Heparin Sodium (Porcine) (Heparin 5,000 Unit/Ml Vial) 5,000 unit SQ Q12 [facility] Last Admin: 02/15/21 08:52 Dose: 5,000 unit Documented by: Hydralazine HCl (Hydralazine 20 Mg/Ml Vial) 10 mg IV Q4-6HP PRN PRN Reason: Hypertension Sodium Chloride (Sodium Chloride 0.9%) 1,000 mls @ 0 mls/hr IV BOLUS [facility] Last Admin: 02/14/21 17:57 Dose: Not Given Documented by: Potassium Chloride 40 meq/ (Dextrose) 520 mls @ 130 mls/hr IV UD PRN PRN Reason: K+ = or < 3.5 Acetaminophen (Ofirmev) 650 mg in 65 mls @ 130 mls/hr IV Q6HP PRN; Protocol PRN Reason: Per Pain Protocol/Fever > 101 Magnesium Sulfate (Magnesium Sulfate) 2 gm in 50 mls @ 50 mls/hr IV UD PRN PRN Reason: MG = or < 1.7 Sodium Chloride (Sodium Chloride 0.9%) 1,000 mls @ 50 mls/hr IV .Q20H [facility] Stop: 02/17/21 02:44 Last Admin: 02/15/21 11:15 Dose: Not Given Documented by: Ceftriaxone Sodium 2 gm/ (Dextrose) 50 mls @ 100 mls/hr IV Q24H [facility]; Protocol Last Infusion: 02/15/21 09:22 Dose: Infused Documented by: Iron Carb/Multivit/[place]/Folic Acid (Multivit,Ther Iron,Ca,Fa & Min 1 Tablet) 1 tab PO DAILY [facility] Last Admin: 02/15/21 08:51 Dose: 1 tab Documented by: Melatonin (Melatonin 3 Mg Tablet) 3 mg PO HSP PRN PRN Reason: Insomnia Metoprolol Tartrate (Metoprolol Tartrate 5 Mg/5 Ml Vial) 5 mg IV Q5M PRN PRN Reason: Heart Rate > 140 bpm Ondansetron HCl (Ondansetron 4 Mg Odt Tablet) 4 mg SL Q4-6HP PRN; Protocol PRN Reason: Nausea And Vomiting Ondansetron HCl (Ondansetron 4 Mg/2 Ml Vial) 4 mg IV Q4-6HP PRN; Protocol PRN Reason: Nausea And Vomiting Polyethylene Glycol (Polyethylene Glycol 3350 17 Gm Packet) 17 gm PO DAILYP PRN PRN Reason: Constipation Potassium Chloride (Potassium Chloride 20 Meq Packet) 40 meq PO DAILYP PRN PRN Reason: K+ < 3.5 Senna/Docusate Sodium (Sennosides/Docusate Sodium 1 Tab Tablet) 1 tab PO HS [facility] Last Admin: 02/14/21 19:44 Dose: 1 tab Documented by: Sodium Chloride (0.9 % Sodium Chloride 10 Ml Syringe) 10 ml IV Q8 [facility] Last Admin: 02/15/21 04:05 Dose: Not Given Documented by: A/P Narrative A/P Narrative: * Complicated GNR UTI, clinically responding to antibiotic coverage, await de- escalation based on culture sensitivities * Sepsis with endorgan dysfunction, rapid clinical improvement noted with crystalloids and evidence of improved endorgan dysfunction. * CALVIN secondary to sepsis endorgan dysfunction. Negative renal ultrasound for obstructive uropathy. Creatinine down from 1.7-1.4. * Rhabdomyolysis secondary to fall, clinically improved on crystalloids. * Hypertension ARB on hold until systolics over 140 * Prophylaxis Heparin Plan * Continue antibiotic coverage and de-escalate based on sensitivities * PT OT/nutrition support * Hold ARB * Discharge planning per case management Time Spent With Patient Time: Total time spent is greater than 50% in coordination of care (as documented) at patient's floor/unit and/or counseling patient: Total time spent with greater than 50% in coordination of care (as documented) at patient's floor/unit and/or counseling patient:: Greater than 35 minutes QUALITY VTE Deep Vein Thrombosis/Pulmonary Embolism Present on Admission: No
[2021-02-15] MEDS: SENNOSIDES/DOCUSATE SODIUM 1 TAB TABLET PO SCH (20:18)
[2021-02-15] MEDS: ACETAMINOPHEN 325 MG TABLET PO PRN (20:55)
[2021-02-16] MEDS: 0.9 % SODIUM CHLORIDE 10 ML SYRINGE IV SCH ×3 (04:39→20:47)
[2021-02-16] MEDS: 0.9 % SODIUM CHLORIDE 1,000 ML IV SCH ×3 (04:51→17:29)
[2021-02-16 09:17] LABS: Basophils # (Auto) 0.03 K/mcL (0.00-0.30); Basophils % (Auto) 0.6 % (0.0-2.0); Eosinophils # (Auto) 0.12 K/mcL (0.00-0.70); Eosinophils % (Auto) 2.3 % (0.0-7.0); Hematocrit 32.2 % (34.1-44.9); Hemoglobin 10.7 g/dL (11.2-15.7); Lymphocytes # (Auto) 0.77 K/mcL (1.50-4.80); Lymphocytes % (Auto) 14.9 % (15.5-49.0); Mean Cell Volume 86.8 fL (80.0-100.0); Mean Corpuscular HGB Conc 33.2 g/dL (31.0-36.0); Monocytes # (Auto) 0.82 K/mcL (0.10-0.90); Monocytes % (Auto) 15.8 % (1.0-12.0); Neutrophils % (Auto) 66.4 % (38.0-78.0); Platelet Count 213 K/mcL (140-440); RBC 3.71 M/mcL (3.59-5.38); Red Cell Distribution Width 14.4 % (11.5-14.5); WBC 5.2 K/mcL (4.5-11.0)
[2021-02-16 09:23] LABS: ALT/SGPT 29 U/L (<40); AST/SGOT 46 U/L (<32); Albumin 2.8 gm/dL (3.2-5.2); Albumin/Globulin Ratio 0.8 (1.0-2.3); Alkaline Phosphatase 69 U/L (39-117); Bilirubin,Direct < 0.2 mg/dL (0-0.3); Bilirubin,Total 0.4 mg/dL (0.1-1.0); Blood Urea Nitrogen 34 mg/dL (8-23); Calcium 8.4 mg/dL (8.6-10.4); Carbon Dioxide 23 mmol/L (22-30); Chloride 105 mmol/L (96-108); Globulin 3.3 gm/dL (2.2-3.7); Glomerular Filtration Rate 44; Glucose 99 mg/dL (70-105); Lactate Dehydrogenase 228 U/L (135-225); Phosphorous 2.9 mg/dL (2.5-4.5); Triglycerides 176 mg/dL (<150); Uric Acid 8.1 mg/dL (2.5-8.0)
[2021-02-16] MEDS: DOCUSATE SODIUM 100 MG CAPSULE PO SCH ×2 (10:10→19:37)
[2021-02-16] MEDS: MULTIVIT,THER IRON,CA,FA & MIN 1 TABLET PO SCH (10:11)
[2021-02-16] MEDS: HEPARIN 5,000 UNIT/ML VIAL SQ SCH ×2 (10:12→19:37)
[2021-02-16] MEDS: cefTRIAXone 2 GM in DEXTROSE 5% IN WATER 50 ML IV SCH (10:15)
[2021-02-16] MEDS ORDERED: ALPRAZolam 0.25 MG TABLET PO ONE (10:41)
--- NOTE | 2021-02-16 10:41 | Internal Med Progress Note ---
SUBJECTIVE Subjective Patient information: Note initiated : 02/16/21 at 10:37 am Service Date, if different from initiated Date: [] Patient: Shalini Gentile 89 y/o F admitted on 02/14/21 for fall. Chief Complaint: [] Interval history: Ms. Gentile is a 89 year old F with a history of hypertension who lives fairly independently with her daughter who lives within 5 minutes of her home and frequently checks on her. She found her yesterday confused weak and with the bruising on forehead. She however was not able to tell her exact circumstances of injury or fall. Although she was lucid and daughter did not feel that she would require hospitalization. She checked on her this morning. Patient was increasingly confused and weaker unable to function or get out of bed. She has not been able to eat anything since last night. With concern she brought her to the ER for evaluation. Initial work-up was consistent with sepsis with pyuria and acute kidney injury, elevated CK at 5000. Patient was started on crystalloid/antibiotics and subsequently hospitalist service was consulted At the time of my evaluation patient is accompanied with her daughter. She was able to answer most the questions. She feels a lot better after 2 L of trent talloids. She denies recent diarrhea, dysuria, chest pain, URI symptoms, medication changes. She denies recent hospitalizations. She is otherwise fairly active and uses a walker to ambulate. 02/15-patient doing a lot better. Sitting on chair. Much improved mental status, hemodynamics and downtrending white count. Creatinine down from 1.7- 1.4. Renal ultrasound negative for obstructive uropathy. LFTs improving. Sepsis much improved with white count down from 14.6- 7K. Tachycardia resolved, afebrile, systolics improved. Lactate 1.8, GNR on urine cultures. 02/16-. Patient clinically improved with downtrending leukocytosis, improved renal function from 1.7-1.1, improving LFTs, urine cultures GNR. Daughter at bedside. Patient complains that she was unable to sleep last night. She feels very depressed. She also does not want to be transferred to nursing facility even though daughter clearly expressed concerns about her weakness and high probability subsequent falls and injuries. Case management coordinating swing bed admission to facilitate extended hospitalization/rehab. Continue antibiotic coverage. Continue nutrition support. Initiate anxiolytic Constitutional Vitals: Vital Signs Temp Pulse Resp BP Pulse Ox 98.1 F 72 22 126/73 97 02/16/21 08:00 02/16/21 08:00 02/16/21 08:00 02/16/21 08:00 02/16/21 08:00 Period Temp Pulse Resp BP Sys/Mcghee Pulse Ox Last 24 Hr 97.7 F-98.7 F 68-92 20-22 105-133/54-73 95-100 Intake and Output 02/15/21 02/16/21 02/16/21 21:59 05:59 13:59 Intake Total 1300 425 Output Total 701 1047 375 Balance 599 622 -375 Weight 73.028 kg alert but anxious Withdrawn with flat affect Nonlabored breathing No lymphedema Intake & Output: Intake & Output 02/15/21 02/16/21 02/16/21 21:59 05:59 13:59 Intake Total 1300 425 Output Total 701 1047 375 Balance 599 622 -375 Weight 73.028 kg Intake: IV 1000 Sodium Chloride 0.9% 1,000 ml @ 1000 50 mls/hr IV .Q20H [facility] Rx#: [id number] Oral 300 425 Output: Void Amount 700 1045 375 # of times incontinent of urine 1 2 Other: Meal Dinner Percent of Meal Consumed 75% Feeding Ability Independent Urine Appearance Cloudy Clear Cloudy Urine Color Bright Yellow Pale Bright Yellow Urine Odor Normal Strong OBJ DATA Labs CBC & Chem 7: 02/16/21 05:44 02/16/21 05:44 Labs: Abnormal Lab Results 02/16/21 02/16/21 02/15/21 05:44 05:44 05:25 WBC Hgb 10.7 L Hct 32.2 L MPV 11.0 H Neut % (Auto) Lymph % (Auto) 14.9 L Coleman % (Auto) 15.8 H Lymph # (Auto) 0.77 L Coleman # (Auto) Absolute Neutrophils Sodium Chloride Carbon Dioxide Anion Gap BUN 34 H 46 H Creatinine 1.4 H Glucose 109 H Uric Acid 8.1 H 8.3 H Calcium 8.4 L Magnesium 3.0 H Total Bilirubin AST 46 H 82 H ALT Lactate Dehydrogenase 228 H 292 H Total Creatine Kinase Albumin 2.8 L Globulin Albumin/Globulin Ratio 0.8 L Triglycerides 176 H Procalcitonin Urine Appearance Urine Protein Ur Leukocyte Esterase Urine RBC Urine WBC Urine Bacteria Hyaline Casts 02/15/21 02/14/21 02/14/21 05:25 12:36 11:29 WBC Hgb Hct MPV 11.0 H Neut % (Auto) 79.6 H Lymph % (Auto) 7.0 L Coleman % (Auto) 13.1 H Lymph # (Auto) 0.76 L Coleman # (Auto) 1.42 H Absolute Neutrophils 8.65 H Sodium Chloride Carbon Dioxide Anion Gap BUN Creatinine Glucose Uric Acid Calcium Magnesium Total Bilirubin AST ALT Lactate Dehydrogenase Total Creatine Kinase Albumin Globulin Albumin/Globulin Ratio Triglycerides Procalcitonin 1.27 H Urine Appearance Turbid A Urine Protein 100 A Ur Leukocyte Esterase 250 A Urine RBC 40 H Urine WBC > 182 H Urine Bacteria Many A Hyaline Casts 25 H 02/14/21 02/14/21 11:29 11:29 WBC 14.6 H Hgb Hct MPV 11.8 H Neut % (Auto) 83.8 H Lymph % (Auto) 3.8 L Coleman % (Auto) 12.2 H Lymph # (Auto) 0.56 L Coleman # (Auto) 1.78 H Absolute Neutrophils 12.20 H Sodium 132 L Chloride 92 L Carbon Dioxide 21 L Anion Gap 19.0 H BUN 52 H Creatinine 1.7 H Glucose 147 H Uric Acid Calcium Magnesium Total Bilirubin 1.3 H AST 127 H ALT 41 H Lactate Dehydrogenase Total Creatine Kinase 5050 H Albumin Globulin 4.0 H Albumin/Globulin Ratio Triglycerides Procalcitonin Urine Appearance Urine Protein Ur Leukocyte Esterase Urine RBC Urine WBC Urine Bacteria Hyaline Casts Meds: Medications Acetaminophen (Acetaminophen 325 Mg Tablet) 650 mg PO Q4-6HP PRN; Protocol PRN Reason: Per Pain Protocol/Fever > 101 Last Admin: 02/15/21 20:55 Dose: 650 mg Documented by: Bisacodyl (Bisacodyl 10 Mg Supp.Rect) 10 mg OR Q2-3DAYS PRN PRN Reason: Constipation Docusate Sodium (Docusate Sodium 100 Mg Capsule) 100 mg PO BID [facility] Last Admin: 02/16/21 10:10 Dose: 100 mg Documented by: Heparin Sodium (Porcine) (Heparin 5,000 Unit/Ml Vial) 5,000 unit SQ Q12 [facility] Last Admin: 02/16/21 10:12 Dose: 5,000 unit Documented by: Hydralazine HCl (Hydralazine 20 Mg/Ml Vial) 10 mg IV Q4-6HP PRN PRN Reason: Hypertension Sodium Chloride (Sodium Chloride 0.9%) 1,000 mls @ 0 mls/hr IV BOLUS [facility] Last Admin: 02/15/21 14:19 Dose: Not Given Documented by: Potassium Chloride 40 meq/ (Dextrose) 520 mls @ 130 mls/hr IV UD PRN PRN Reason: K+ = or < 3.5 Acetaminophen (Ofirmev) 650 mg in 65 mls @ 130 mls/hr IV Q6HP PRN; Protocol PRN Reason: Per Pain Protocol/Fever > 101 Magnesium Sulfate (Magnesium Sulfate) 2 gm in 50 mls @ 50 mls/hr IV UD PRN PRN Reason: MG = or < 1.7 Sodium Chloride (Sodium Chloride 0.9%) 1,000 mls @ 50 mls/hr IV .Q20H [facility] Stop: 02/17/21 02:44 Last Admin: 02/16/21 04:51 Dose: Not Given Documented by: Ceftriaxone Sodium 2 gm/ (Dextrose) 50 mls @ 100 mls/hr IV Q24H [facility]; Protocol Last Admin: 02/16/21 10:15 Dose: 100 mls/hr Documented by: Iron Carb/Multivit/[place]/Folic Acid (Multivit,Ther Iron,Ca,Fa & Min 1 Tablet) 1 tab PO DAILY [facility] Last Admin: 02/16/21 10:11 Dose: 1 tab Documented by: Melatonin (Melatonin 3 Mg Tablet) 3 mg PO HSP PRN PRN Reason: Insomnia Metoprolol Tartrate (Metoprolol Tartrate 5 Mg/5 Ml Vial) 5 mg IV Q5M PRN PRN Reason: Heart Rate > 140 bpm Ondansetron HCl (Ondansetron 4 Mg Odt Tablet) 4 mg SL Q4-6HP PRN; Protocol PRN Reason: Nausea And Vomiting Ondansetron HCl (Ondansetron 4 Mg/2 Ml Vial) 4 mg IV Q4-6HP PRN; Protocol PRN Reason: Nausea And Vomiting Polyethylene Glycol (Polyethylene Glycol 3350 17 Gm Packet) 17 gm PO DAILYP PRN PRN Reason: Constipation Potassium Chloride (Potassium Chloride 20 Meq Packet) 40 meq PO DAILYP PRN PRN Reason: K+ < 3.5 Senna/Docusate Sodium (Sennosides/Docusate Sodium 1 Tab Tablet) 1 tab PO HS [facility] Last Admin: 02/15/21 20:18 Dose: 1 tab Documented by: Sodium Chloride (0.9 % Sodium Chloride 10 Ml Syringe) 10 ml IV Q8 [facility] Last Admin: 02/16/21 04:39 Dose: Not Given Documented by: A/P Narrative A/P Narrative: * Complicated GNR UTI, clinically responding to antibiotic coverage, await culture sensitivities * Sepsis with endorgan dysfunction, rapid improvement noted. White count nor malized. * CALVIN secondary to sepsis endorgan dysfunction. Renal ultrasound negative. Creatinine down from 1.7-1.4->1.1. * Rhabdomyolysis secondary to fall, clinically resolved on crystalloids. * Anxiety disorder start SSRI, short-term anxiolytic * Hypertension continue ARB on hold until systolics over 140 * Prophylaxis Heparin Plan * Continue antibiotic coverage and de-escalate based on sensitivities * Short-term anxiolytic, SSRI * PT OT/nutrition support * ontinue to hold ARB * Discharge planning per case management likely swing bed on Sunday Time Spent With Patient Time: Total time spent is greater than 50% in coordination of care (as documented) at patient's floor/unit and/or counseling patient: Total time spent with greater than 50% in coordination of care (as documented) at patient's floor/unit and/or counseling patient:: Greater than 35 minutes QUALITY VTE Deep Vein Thrombosis/Pulmonary Embolism Present on Admission: No
[2021-02-16] MEDS: VENLAFAXINE 37.5 MG TAB.ER.24H PO SCH (10:54)
[2021-02-16] MEDS: SENNOSIDES/DOCUSATE SODIUM 1 TAB TABLET PO SCH (19:37)
[2021-02-17] MEDS: 0.9 % SODIUM CHLORIDE 10 ML SYRINGE IV SCH ×3 (05:03→22:04)
[2021-02-17 06:55] LABS: Basophils # (Auto) 0.02 K/mcL (0.00-0.30); Basophils % (Auto) 0.4 % (0.0-2.0); Eosinophils # (Auto) 0.11 K/mcL (0.00-0.70); Eosinophils % (Auto) 2.3 % (0.0-7.0); Hemoglobin 10.3 g/dL (11.2-15.7); Lymphocytes # (Auto) 0.77 K/mcL (1.50-4.80); Lymphocytes % (Auto) 16.1 % (15.5-49.0); Mean Cell Volume 87.7 fL (80.0-100.0); Mean Corpuscular HGB Conc 32.2 g/dL (31.0-36.0); Mean Platelet Volume 10.7 fL (7.4-10.4); Monocytes # (Auto) 0.58 K/mcL (0.10-0.90); Monocytes % (Auto) 12.2 % (1.0-12.0); Platelet Count 225 K/mcL (140-440); RBC 3.65 M/mcL (3.59-5.38); Red Cell Distribution Width 14.3 % (11.5-14.5); WBC 4.8 K/mcL (4.5-11.0)
[2021-02-17 07:39] LABS: ALT/SGPT 26 U/L (<40); AST/SGOT 32 U/L (<32); Alkaline Phosphatase 68 U/L (39-117); Bilirubin,Direct < 0.2 mg/dL (0-0.3); Bilirubin,Total 0.5 mg/dL (0.1-1.0); Blood Urea Nitrogen 24 mg/dL (8-23); Calcium 8.3 mg/dL (8.6-10.4); Carbon Dioxide 22 mmol/L (22-30); Chloride 110 mmol/L (96-108); Glomerular Filtration Rate 65; Glucose 102 mg/dL (70-105); Lactate Dehydrogenase 213 U/L (135-225); Triglycerides 131 mg/dL (<150); Uric Acid 6.9 mg/dL (2.5-8.0)
[2021-02-17] MEDS: DOCUSATE SODIUM 100 MG CAPSULE PO SCH ×2 (08:59→19:45)
[2021-02-17] MEDS: MULTIVIT,THER IRON,CA,FA & MIN 1 TABLET PO SCH (08:59)
[2021-02-17] MEDS: CIPROFLOXACIN 500 MG TABLET PO SCH ×2 (08:59→19:45)
[2021-02-17] MEDS: VENLAFAXINE 37.5 MG TAB.ER.24H PO SCH (08:59)
[2021-02-17] MEDS: HEPARIN 5,000 UNIT/ML VIAL SQ SCH ×2 (08:59→19:46)
--- NOTE | 2021-02-17 11:45 | Internal Med Progress Note ---
SUBJECTIVE Subjective Patient information: Note initiated : 02/17/21 at 11:41 am Service Date, if different from initiated Date: [] Patient: Shalini Gentile 89 y/o F admitted on 02/14/21 for fall. Chief Complaint: [] Interval history: Ms. Gentile is a 89 year old F with a history of hypertension who lives fairly independently with her daughter who lives within 5 minutes of her home and frequently checks on her. She found her yesterday confused weak and with the bruising on forehead. She however was not able to tell her exact circumstances of injury or fall. Although she was lucid and daughter did not feel that she would require hospitalization. She checked on her this morning. Patient was increasingly confused and weaker unable to function or get out of bed. She has not been able to eat anything since last night. With concern she brought her to the ER for evaluation. Initial work-up was consistent with sepsis with pyuria and acute kidney injury, elevated CK at 5000. Patient was started on crystalloid/antibiotics and subsequently hospitalist service was consulted At the time of my evaluation patient is accompanied with her daughter. She was able to answer most the questions. She feels a lot better after 2 L of trent talloids. She denies recent diarrhea, dysuria, chest pain, URI symptoms, medication changes. She denies recent hospitalizations. She is otherwise fairly active and uses a walker to ambulate. 02/15-patient doing a lot better. Sitting on chair. Much improved mental status, hemodynamics and downtrending white count. Creatinine down from 1.7- 1.4. Renal ultrasound negative for obstructive uropathy. LFTs improving. Sepsis much improved with white count down from 14.6- 7K. Tachycardia resolved, afebrile, systolics improved. Lactate 1.8, GNR on urine cultures. 02/16-. Patient clinically improved with downtrending leukocytosis, improved renal function from 1.7-1.1, improving LFTs, urine cultures GNR. Daughter at bedside. Patient complains that she was unable to sleep last night. She feels very depressed. She also does not want to be transferred to nursing facility even though daughter clearly expressed concerns about her weakness and high probability subsequent falls and injuries. Case management coordinating swing bed admission to facilitate extended hospitalization/rehab. Continue antibiotic coverage. Continue nutrition support. Initiate anxiolytic 02/17-patient seen in room along with daughter. In good spirits. Feeling a lot better. White count down to 4.8. On antibiotic coverage for E. coli UTI. Creatinine normalized from 1.7-0.8. Antibiotics switched to ciprofloxacin twice daily. Transition to swing bed status in 24-hour for continued inpatient reha b. Improving weakness. Pansensitive E. coli on cultures. Constitutional Vitals: Vital Signs Temp Pulse Resp BP Pulse Ox 97.8 F 74 16 139/72 97 02/17/21 07:02 02/17/21 07:02 02/17/21 07:02 02/17/21 07:02 02/17/21 07:02 Period Temp Pulse Resp BP Sys/Mcghee Pulse Ox Last 24 Hr 96.7 F-97.8 F 74-88 16-22 106-154/60-82 92-97 Intake and Output 02/16/21 02/17/21 02/17/21 21:59 05:59 13:59 Intake Total 400 1500 Output Total 450 700 200 Balance -50 -700 1300 Weight 74.616 kg alert oriented Order breathing No anxiety Nondistended abdomen Intake & Output: Intake & Output 02/16/21 02/17/21 02/17/21 21:59 05:59 13:59 Intake Total 400 1500 Output Total 450 700 200 Balance -50 -700 1300 Weight 74.616 kg Intake: IV 1000 Sodium Chloride 0.9% 1,000 ml @ 1000 50 mls/hr IV .Q20H [facility] Rx#: [id number] Oral 400 500 Output: Void Amount 450 700 200 Other: Meal Breakfast Percent of Meal Consumed 50% Urine Appearance Cloudy Cloudy Clear Urine Color Bright Yellow Bright Yellow Dark Yellow Urine Odor Strong Normal Stool Size Moderate Stool Color Brown Stool Consistency Normal for Patient Soft Formed # Voids 1 # Bowel Movements 1 OBJ DATA Labs CBC & Chem 7: 02/17/21 05:39 02/17/21 05:39 Labs: Abnormal Lab Results 02/17/21 02/17/21 02/16/21 05:39 05:39 05:44 WBC Hgb 10.3 L Hct 32.0 L MPV 10.7 H Neut % (Auto) Lymph % (Auto) Lynn % (Auto) 12.2 H Lymph # (Auto) 0.77 L Lynn # (Auto) Absolute Neutrophils Sodium 146 H Chloride 110 H Carbon Dioxide Anion Gap BUN 24 H 34 H Creatinine Glucose Uric Acid 8.1 H Calcium 8.3 L 8.4 L Magnesium Total Bilirubin AST 32 H 46 H ALT Lactate Dehydrogenase 228 H Total Creatine Kinase Albumin 3.0 L 2.8 L Globulin Albumin/Globulin Ratio 0.8 L Triglycerides 176 H Procalcitonin Urine Appearance Urine Protein Ur Leukocyte Esterase Urine RBC Urine WBC Urine Bacteria Hyaline Casts 02/16/21 02/15/21 02/15/21 05:44 05:25 05:25 WBC Hgb 10.7 L Hct 32.2 L MPV 11.0 H 11.0 H Neut % (Auto) 79.6 H Lymph % (Auto) 14.9 L 7.0 L Lynn % (Auto) 15.8 H 13.1 H Lymph # (Auto) 0.77 L 0.76 L Lynn # (Auto) 1.42 H Absolute Neutrophils 8.65 H Sodium Chloride Carbon Dioxide Anion Gap BUN 46 H Creatinine 1.4 H Glucose 109 H Uric Acid 8.3 H Calcium Magnesium 3.0 H Total Bilirubin AST 82 H ALT Lactate Dehydrogenase 292 H Total Creatine Kinase Albumin Globulin Albumin/Globulin Ratio Triglycerides Procalcitonin Urine Appearance Urine Protein Ur Leukocyte Esterase Urine RBC Urine WBC Urine Bacteria Hyaline Casts 02/14/21 02/14/21 02/14/21 12:36 11:29 11:29 WBC Hgb Hct MPV Neut % (Auto) Lymph % (Auto) Lynn % (Auto) Lymph # (Auto) Lynn # (Auto) Absolute Neutrophils Sodium 132 L Chloride 92 L Carbon Dioxide 21 L Anion Gap 19.0 H BUN 52 H Creatinine 1.7 H Glucose 147 H Uric Acid Calcium Magnesium Total Bilirubin 1.3 H AST 127 H ALT 41 H Lactate Dehydrogenase Total Creatine Kinase 5050 H Albumin Globulin 4.0 H Albumin/Globulin Ratio Triglycerides Procalcitonin 1.27 H Urine Appearance Turbid A Urine Protein 100 A Ur Leukocyte Esterase 250 A Urine RBC 40 H Urine WBC > 182 H Urine Bacteria Many A Hyaline Casts 25 H 02/14/21 11:29 WBC 14.6 H Hgb Hct MPV 11.8 H Neut % (Auto) 83.8 H Lymph % (Auto) 3.8 L Lynn % (Auto) 12.2 H Lymph # (Auto) 0.56 L Lynn # (Auto) 1.78 H Absolute Neutrophils 12.20 H Sodium Chloride Carbon Dioxide Anion Gap BUN Creatinine Glucose Uric Acid Calcium Magnesium Total Bilirubin AST ALT Lactate Dehydrogenase Total Creatine Kinase Albumin Globulin Albumin/Globulin Ratio Triglycerides Procalcitonin Urine Appearance Urine Protein Ur Leukocyte Esterase Urine RBC Urine WBC Urine Bacteria Hyaline Casts Meds: Medications Acetaminophen (Acetaminophen 325 Mg Tablet) 650 mg PO Q4-6HP PRN; Protocol PRN Reason: Per Pain Protocol/Fever > 101 Last Admin: 02/15/21 20:55 Dose: 650 mg Documented by: Bisacodyl (Bisacodyl 10 Mg Supp.Rect) 10 mg NM Q2-3DAYS PRN PRN Reason: Constipation Ciprofloxacin (Ciprofloxacin 500 Mg Tablet) 500 mg PO BID [facility]; Protocol Last Admin: 02/17/21 08:59 Dose: 500 mg Documented by: Docusate Sodium (Docusate Sodium 100 Mg Capsule) 100 mg PO BID [facility] Last Admin: 02/17/21 08:59 Dose: 100 mg Documented by: Heparin Sodium (Porcine) (Heparin 5,000 Unit/Ml Vial) 5,000 unit SQ Q12 [facility] Last Admin: 02/17/21 08:59 Dose: 5,000 unit Documented by: Hydralazine HCl (Hydralazine 20 Mg/Ml Vial) 10 mg IV Q4-6HP PRN PRN Reason: Hypertension Sodium Chloride (Sodium Chloride 0.9%) 1,000 mls @ 0 mls/hr IV BOLUS [facility] Last Admin: 02/16/21 17:29 Dose: Not Given Documented by: Potassium Chloride 40 meq/ (Dextrose) 520 mls @ 130 mls/hr IV UD PRN PRN Reason: K+ = or < 3.5 Acetaminophen (Ofirmev) 650 mg in 65 mls @ 130 mls/hr IV Q6HP PRN; Protocol PRN Reason: Per Pain Protocol/Fever > 101 Magnesium Sulfate (Magnesium Sulfate) 2 gm in 50 mls @ 50 mls/hr IV UD PRN PRN Reason: MG = or < 1.7 Iron Carb/Multivit/[place]/Folic Acid (Multivit,Ther Iron,Ca,Fa & Min 1 Tablet) 1 tab PO DAILY [facility] Last Admin: 02/17/21 08:59 Dose: 1 tab Documented by: Melatonin (Melatonin 3 Mg Tablet) 3 mg PO HSP PRN PRN Reason: Insomnia Metoprolol Tartrate (Metoprolol Tartrate 5 Mg/5 Ml Vial) 5 mg IV Q5M PRN PRN Reason: Heart Rate > 140 bpm Ondansetron HCl (Ondansetron 4 Mg Odt Tablet) 4 mg SL Q4-6HP PRN; Protocol PRN Reason: Nausea And Vomiting Ondansetron HCl (Ondansetron 4 Mg/2 Ml Vial) 4 mg IV Q4-6HP PRN; Protocol PRN Reason: Nausea And Vomiting Polyethylene Glycol (Polyethylene Glycol 3350 17 Gm Packet) 17 gm PO DAILYP PRN PRN Reason: Constipation Potassium Chloride (Potassium Chloride 20 Meq Packet) 40 meq PO DAILYP PRN PRN Reason: K+ < 3.5 Senna/Docusate Sodium (Sennosides/Docusate Sodium 1 Tab Tablet) 1 tab PO HS [facility] Last Admin: 02/16/21 19:37 Dose: 1 tab Documented by: Sodium Chloride (0.9 % Sodium Chloride 10 Ml Syringe) 10 ml IV Q8 [facility] Last Admin: 02/17/21 05:03 Dose: Not Given Documented by: Venlafaxine HCl (Venlafaxine 37.5 Mg Tab.Er.24h) 37.5 mg PO DAILY [facility] Last Admin: 02/17/21 08:59 Dose: 37.5 mg Documented by: A/P Narrative A/P Narrative: * Complicated E. coli UTI, de-escalate antibiotics ciprofloxacin orally * Sepsis with endorgan dysfunction, clinically resolved, anticipate discharge 24 hours * CALVIN secondary to sepsis endorgan dysfunction. Resolved. Renal ultrasound negative. Creatinine down from 1.7-1.4->1.1-> 0.8 * Rhabdomyolysis secondary to fall, clinically resolved on crystalloids. * Anxiety disorder -improved response to SSRI * Hypertension restart ARB at half dose * Prophylaxis Heparin Plan * transition to oral ciprofloxacin * Continue SSRI * PT OT/nutrition support * restart ARB at half dose * Discharge planning per case management likely swing bed on Sunday Time Spent With Patient Time: Total time spent is greater than 50% in coordination of care (as documented) at patient's floor/unit and/or counseling patient: QUALITY VTE Deep Vein Thrombosis/Pulmonary Embolism Present on Admission: No
[2021-02-17] MEDS: 0.9 % SODIUM CHLORIDE 1,000 ML IV SCH (12:52)
[2021-02-17] MEDS: SENNOSIDES/DOCUSATE SODIUM 1 TAB TABLET PO SCH (19:45)
[2021-02-17] MEDS ORDERED: AMITRIPTYLINE 10 MG TABLET PO SCH (21:00)
[2021-02-18] MEDS: 0.9 % SODIUM CHLORIDE 10 ML SYRINGE IV SCH (04:43)
[2021-02-18 07:09] LABS: Basophils # (Auto) 0.03 K/mcL (0.00-0.30); Basophils % (Auto) 0.6 % (0.0-2.0); Eosinophils # (Auto) 0.13 K/mcL (0.00-0.70); Eosinophils % (Auto) 2.6 % (0.0-7.0); Hematocrit 30.6 % (34.1-44.9); Hemoglobin 9.9 g/dL (11.2-15.7); Lymphocytes # (Auto) 0.79 K/mcL (1.50-4.80); Lymphocytes % (Auto) 15.6 % (15.5-49.0); Mean Cell Volume 87.9 fL (80.0-100.0); Mean Corpuscular HGB Conc 32.4 g/dL (31.0-36.0); Mean Platelet Volume 10.8 fL (7.4-10.4); Monocytes # (Auto) 0.58 K/mcL (0.10-0.90); Monocytes % (Auto) 11.5 % (1.0-12.0); Neutrophils % (Auto) 69.7 % (38.0-78.0); Platelet Count 224 K/mcL (140-440); RBC 3.48 M/mcL (3.59-5.38); Red Cell Distribution Width 14.3 % (11.5-14.5); WBC 5.1 K/mcL (4.5-11.0)
[2021-02-18 07:46] LABS: ALT/SGPT 32 U/L (<40); AST/SGOT 49 U/L (<32); Albumin 2.9 gm/dL (3.2-5.2); Alkaline Phosphatase 67 U/L (39-117); Bilirubin,Direct < 0.2 mg/dL (0-0.3); Bilirubin,Total 0.5 mg/dL (0.1-1.0); Blood Urea Nitrogen 21 mg/dL (8-23); Calcium 8.5 mg/dL (8.6-10.4); Carbon Dioxide 23 mmol/L (22-30); Chloride 106 mmol/L (96-108); Glomerular Filtration Rate 50; Glucose 96 mg/dL (70-105); Lactate Dehydrogenase 229 U/L (135-225); Phosphorous 3.2 mg/dL (2.5-4.5); Triglycerides 102 mg/dL (<150); Uric Acid 6.6 mg/dL (2.5-8.0)
[2021-02-18] MEDS: CIPROFLOXACIN 500 MG TABLET PO SCH (08:20)
[2021-02-18] MEDS: MULTIVIT,THER IRON,CA,FA & MIN 1 TABLET PO SCH (08:20)
[2021-02-18] MEDS: DOCUSATE SODIUM 100 MG CAPSULE PO SCH (08:20)
[2021-02-18] MEDS: HEPARIN 5,000 UNIT/ML VIAL SQ SCH (08:20)
[2021-02-18] MEDS: VENLAFAXINE 37.5 MG TAB.ER.24H PO SCH (08:20)
--- NOTE | 2021-02-18 08:49 | Discharge Summary ---
Discharge Provider Provider Patient information: Note initiated : 02/18/21 at 8:43 am Service Date, if different from initiated Date: [] Patient: Shalini Gentile 89 y/o F admitted on 02/14/21 for fall. Chief Complaint: [] Date of admission: 02/14/21 16:45 Discharge date: 02/18/21 Primary care physician: Robert Morales MD Consults: 02/14/21 Consult to Physician [CONS] Stat Comment: Consulting Provider: Luan Santana Reason For Exam: Physician to Consult Discharge Meds Discharge Medications Home Medications calcium carbonate 500 mg calcium (1,250 mg) tablet (Calcium 500) 1,250 mg PO QDAY tab 10/15/14 [History Confirmed 02/14/21 Last Taken 02/12/21] cholecalciferol (vitamin D3) 10 mcg (400 unit) capsule 400 unit PO QDAY cap 10/15/14 [History Confirmed 02/14/21 Last Taken 02/12/21] vit C-vit P-kqbqrw-cxeh ox-lutein 226 mg-200 unit-5 mg-0.8 mg capsule (PreserVision Lutein) 2 cap PO .daily cap 04/25/17 [History Confirmed 02/14/21 Last Taken 02/12/21] valsartan 160 mg tablet 80 mg PO BID #90 tab 12/02/19 [Rx Confirmed 02/14/21 Last Taken 02/12/21] calcitonin (salmon) 200 unit/actuation nasal spray See Rx Instructions INTRANASAL QDAY #3.7 ml 02/11/20 [Rx Confirmed 02/14/21 Last Taken 02/12/21] furosemide 40 mg tablet See Rx Instructions .ROUTE .COMPLEX #90 tab 12/10/20 [Rx Confirmed 02/14/21 Last Taken 02/12/21] amitriptyline 10 mg tablet See Rx Instructions .ROUTE .COMPLEX #270 tab 02/04/21 [Rx Confirmed 02/14/21 Last Taken 02/12/21] ciprofloxacin HCl 500 mg tablet 500 mg PO BID #8 tab 02/18/21 [Rx Last Taken Unknown] venlafaxine 37.5 mg capsule,extended release 24 hr 37.5 mg PO DAILY #30 cap 02/18/21 [Rx Last Taken Unknown] COURSE Hospital Course Hospital course: Discharge diagnosis * Complicated E. coli UTI, clinically improved, continue additional 4 days oral ciprofloxacin * Sepsis with endorgan dysfunction, clinically resolved * CALVIN secondary to sepsis endorgan dysfunction. Resolved. Renal ultrasound negative. Creatinine down from 1.7-1.4->1.1-> 0.8 * Rhabdomyolysis secondary to fall, clinically resolved on crystalloids. * Anxiety disorder -improved response to SSRI. Continue SSRI on discharge * Hypertension continue home dose ARB Brief hospital course Ms. Gentile is a 89 year old F with a history of hypertension who lives fairly independently with her daughter who lives within 5 minutes of her home and frequently checks on her. She found her yesterday confused weak and with the bruising on forehead. She however was not able to tell her exact circumstances of injury or fall. Although she was lucid and daughter did not feel that she would require hospitalization. She checked on her this morning. Patient was increasingly confused and weaker unable to function or get out of bed. She has not been able to eat anything since last night. With concern she brought her to the ER for evaluation. Initial work-up was consistent with sepsis with pyuria and acute kidney injury, elevated CK at 5000. Patient was started on crystalloid/antibiotics and subsequently hospitalist service was consulted At the time of my evaluation patient is accompanied with her daughter. She was able to answer most the questions. She feels a lot better after 2 L of crystalloids. She denies recent diarrhea, dysuria, chest pain, URI symptoms, medication changes. She denies recent hospitalizations. She is otherwise fairly active and uses a walker to ambulate. 02/15-patient doing a lot better. Sitting on chair. Much improved mental status, hemodynamics and downtrending white count. Creatinine down from 1.7- 1.4. Renal ultrasound negative for obstructive uropathy. LFTs improving. Sepsis much improved with white count down from 14.6- 7K. Tachycardia resolved, afebrile, systolics improved. Lactate 1.8, GNR on urine cultures. 02/16-. Patient clinically improved with downtrending leukocytosis, improved renal function from 1.7-1.1, improving LFTs, urine cultures GNR. Daughter at bedside. Patient complains that she was unable to sleep last night. She feels very depressed. She also does not want to be transferred to nursing facility even though daughter clearly expressed concerns about her weakness and high probability subsequent falls and injuries. Case management coordinating swing bed admission to facilitate extended hospitalization/rehab. Continue antibiotic coverage. Continue nutrition support. Initiate anxiolytic 02/17-patient seen in room along with daughter. In good spirits. Feeling a lot better. White count down to 4.8. On antibiotic coverage for E. coli UTI. Creatinine normalized from 1.7-0.8. Antibiotics switched to ciprofloxacin twice daily. Transition to swing bed status in 24-hour for continued inpatient rehab. Improving weakness. Pansensitive E. coli on cultures. 02/18-patient doing well. Feels at baseline. Daughter wanting patient to be discharged today. Renal function normalized. On antibiotics for E. coli UTI on ciprofloxacin. Advised to follow with primary care physician in 5 to 7 days. Return to ER if worsening fever chills abdominal pain nausea vomiting or confusion noted. Discharge diagnosis: Complicated UTI Time Spent with Patient Time attestation: Total time spent providing and/or coordinating discharge services: EXAM Constitutional Vitals: Temp Pulse Resp BP Pulse Ox 97.2 F 68 20 151/68 94 02/18/21 07:30 02/18/21 03:53 02/18/21 07:32 02/18/21 07:30 02/18/21 07:30 Discharge Data Data Completed and Pending Labs on day of discharge: Labs from last 24 hours 02/18/21 02/18/21 05:35 05:35 WBC 5.1 RBC 3.48 L Hgb 9.9 L Hct 30.6 L MCV 87.9 MCH 28.4 MCHC 32.4 RDW 14.3 Plt Count 224 MPV 10.8 H Neut % (Auto) 69.7 Lymph % (Auto) 15.6 [facility] % (Auto) 11.5 Eos % (Auto) 2.6 Baso % (Auto) 0.6 Lymph # (Auto) 0.79 L [facility] # (Auto) 0.58 Eos # (Auto) 0.13 Baso # (Auto) 0.03 Absolute Neutrophils 3.52 Sodium 139 Potassium 4.2 Chloride 106 Carbon Dioxide 23 Anion Gap 10.0 BUN 21 Creatinine 1.0 GFR Calculation 50 Glucose 96 Uric Acid 6.6 Calcium 8.5 L Phosphorus 3.2 Magnesium 2.1 Total Bilirubin 0.5 Direct Bilirubin < 0.2 GGT 10 AST 49 H ALT 32 Alkaline Phosphatase 67 Lactate Dehydrogenase 229 H Total Protein 5.9 Albumin 2.9 L Globulin 3.0 Albumin/Globulin Ratio 1.0 Triglycerides 102 Preliminary micro results at discharge 02/16/21 18:45 Blood Culture - Preliminary Blood 02/16/21 18:38 Blood Culture - Preliminary Blood 02/14/21 15:01 Blood Culture - Preliminary Blood 02/14/21 14:47 Blood Culture - Preliminary Blood Coagulase negative staph Discharge Plan Patient/Caregiver Discharge Instructions Activity: increase activity as tolerated Diet: Regular Diet Instructions: [place] Catheter Placement and Care (ED), Urinary Leg Bag (GEN) Prescriptions: New venlafaxine 37.5 mg Capsule,Extended Release 24hr 37.5 mg PO DAILY Qty: 30 0RF ciprofloxacin HCl 500 mg Tablet 500 mg PO BID Qty: 8 0RF Continued valsartan 160 mg tablet 80 mg PO BID Qty: 90 4RF calcitonin (salmon) 200 unit/actuation spray,non-aerosol See Rx Instructions INTRANASAL QDAY Qty: 3.7 5RF Dose Instruction: 1 spray INTRANASAL QDAY Rx Instructions: 1 spray INTRANASAL QDAY furosemide 40 mg tablet See Rx Instructions .ROUTE .COMPLEX Qty: 90 4RF Dose Instruction: TAKE ONE TABLET BY MOUTH EVERY DAY Rx Instructions: TAKE ONE TABLET BY MOUTH EVERY DAY amitriptyline 10 mg tablet See Rx Instructions .ROUTE .COMPLEX Qty: 270 0RF Dose Instruction: TAKE THREE TABLETS BY MOUTH AT BEDTIME Rx Instructions: TAKE THREE TABLETS BY MOUTH AT BEDTIME calcium carbonate [Calcium 500] 500 mg calcium (1,250 mg) tablet 1,250 mg PO QDAY 0RF Rx Instructions: 1 tablet PO QDAY cholecalciferol (vitamin D3) 400 unit capsule 400 unit PO QDAY 0RF vit C-vit S-kiyjiq-atgt-lutein [PreserVision Lutein] 226 mg-200 unit -5 mg-0.8 mg capsule 2 cap PO .daily 0RF Follow Up Plan Follow up with: Robert Moarles MD [Primary Care Provider] - Patient Disposition: Home, Self-Care Rehab Potential: Fair I certify that the patient requires SNF services: No Overall status at discharge: patient is progressing back to baseline Discharge Orders: Discharge Order (Routine); Ordered 02/18/21 Ordered By: Luan FORD VTE Deep Vein Thrombosis/Pulmonary Embolism Present on Admission: No
[2021-02-18] MEDS ORDERED: LOSARTAN 25 MG TABLET PO SCH (09:00)
== END 2021-02-18 11:47 | disposition home or self-care (01) | DRG 872 ==
LOC: ED 10:27 → MEDSUR 16:45
PROVIDERS: ADMIT Internal Medicine; ATTEND Internal Medicine